=== PATIENT | female | born 1945 | race Caucasian/White ===

== ENCOUNTER 2022-02-19 16:44 | Emergency (ER) | payer MEDICARE, BC, SELFPAY ==
[2022-02-19 17:15] VITALS: BP 162/78; PULSE 72; RESP 18; TEMP 36.7; O2SAT 97; BMI 22.6
--- NOTE | 2022-02-19 17:41 | CRLHL7_ITS ---
For Patients: As a result of the Century Cures Act, medical imaging exams and procedure reports are released immediately into your electronic medical record. You may view this report before your referring provider. If you have questions, please contact your health care provider. INDICATION: Right flank pain COMPARISON: CT abdomen and pelvis without intravenous contrast July 09, 2017. TECHNIQUE: CT abdomen and pelvis without intravenous or oral contrast; coronal and sagittal reformats. FINDINGS: An 8 mm obstructing calculus right distal ureter below the sacroiliac articulation causing moderate to marked right-sided hydronephrosis and hydroureter. Nonobstructing renal calculi lower pole calices right kidney. Extensive perinephric stranding on the right side. Nonobstructing renal calculi lower pole calices left kidney. No obstructive uropathy or perinephric pathology on the left side. Copious amounts of retained stool identified in the rectosigmoid colon. No abnormal intra pulmonary nodular densities through the lung bases. No evidence of pleural effusion. Chronic elevation left hemidiaphragm. No focal hepatic or splenic pathology. No pancreatic pathology. Gallbladder is unremarkable. No adrenal pathology. No retroperitoneal lymphadenopathy. Resection sigmoid colon with end-to-end anastomosis. IMPRESSION: 1. 8 mm obstructing calculus right distal ureter causing moderate to marked right-sided hydronephrosis and hydroureter. 2. Nonobstructing renal calculi lower pole calices both kidneys more on the right. 3. Extensive perinephric stranding on the right. 4. Copious amounts of retained stool identified in the rectosigmoid colon. Please note that all CT scans at this facility use dose modulation, iterative reconstruction, and/or weight-based dosing when appropriate to reduce radiation dose to as low as reasonably achievable. Dictated by Caprice Cardona MD @ 02/19/2022 6:15:12 PM (Electronically Signed)
--- NOTE | 2022-02-19 17:46 | ED_ITS ---
HPI - General Adult General Time Seen by Provider: 17:47 Date Seen: 02/19/22 Chief complaint: Flank Pain Stated complaint: Possible Kidney Stone Time Seen by Provider: 02/19/22 17:27 Source: patient Mode of arrival: ambulatory Limitations: no limitations History of Present Illness HPI narrative: 77-year-old female who comes in today with right flank and right-sided abdominal pain. This started yesterday. She has nausea but no vomiting. Pain is constant, no relieving or exacerbating factors. She tried [place] without relief. She has a history of kidney stones and says this feels similar. No diarrhea, denies hematuria and dysuria. No fevers. No cough or chest pain. Related Data Previous Rx's Medication Instructions Recorded cefdinir 300 mg capsule 300 mg PO BID 10 days #20 caps 02/19/22 polyethylene glycol 3350 17 17 g PO DAILY #238 grams 02/19/22 gram/dose oral powder (Miralax) Allergies Allergy/AdvReac Type Severity Reaction Status Date / Time No Known Drug Allergies Allergy Verified 02/19/22 17:18 Review of Systems Status of ROS: Reports: 10 or more systems reviewed and unremarkable except as noted in History and below PFSH PFSH Social History Smoking Status: Former smoker Do you use any of these nicotine containing products: None Second hand tobacco smoke exposure: No How often do you have a drink containing alcohol: monthly or less How many standard drinks containing alcohol do you have on a typical day: 1 or 2 How often do you have six or more drinks on one occasion: Never AUDIT-C Alcohol total score: 1 Non-prescribed substance use: denies use Exam Narrative: Exam Narrative: General: Well-developed and well-nourished, no acute distress Head: Atraumatic and normocephalic Eyes: Pupils are equal reactive, extraocular motions intact, conjunctiva clear ENT: External nose and ears are normal, posterior pharynx without erythema or exudate Neck: No midline cervical tenderness, full spontaneous range of motion the neck, trachea midline, no adenopathy Heart: Regular rate and rhythm no murmurs or thrills Lungs: Clear to auscultation bilaterally without wheezes or crackles Abdomen: Soft, nontender, nondistended with active bowel sounds Musculoskeletal: No tenderness, deformity, or edema Neurologic: Awake, alert, and oriented x3, no gross focal neurologic deficits, cranial nerves intact as tested Psych: Mood and affect are appropriate Skin: No rashes Const: Vital Signs, click to edit/add: Vital Signs - 24 hr 02/19/22 17:15 Temperature 98.0 F Pulse Rate [Right Pulse Oximeter] 72 Respiratory Rate 18 Blood Pressure [Ri ght Upper Arm] 162/78 H Pulse Oximetry 97 Oxygen Delivery Me thod Room Air Course Course Hospital Course: Patient seen and examined, prior records are reviewed. Patient with right-sided abdominal pain history of kidney stones and says this feels similar. No CVA tenderness on exam, no right-sided abdominal tenderness. No right upper quadrant tenderness, acute cholecystitis unlikely. No right lower quadrant tenderness and patient has a prior appendectomy. Given his symptoms in history of kidney stones, Toradol and Zofran ordered along with labs and CT scan. Reevaluation(s) Reevaluation #1: Discussed CT findings with patient. She has leukocytosis as well as urinalysis with positive nitrites but no white cells, moderate bacteria. Will discuss with Urology, prior procedure at [facility] with Dr. Sanderson with [facility]. Time: 19:38 Reevaluation #2: Care discussed with Dr. Betancourt, [facility]. Feels that if patient looks well clinically, she can be discharged with instructions for return if fever, or other symptoms. Patient is agreeable this Time: 19:53 Vital Signs Vital signs: Initial Vital Signs Temperature 98.0 F 02/19/22 17:15 Temperature Source Temporal Artery Scan 02/19/22 17:15 Pulse Rate 72 02/19/22 17:15 Respiratory Rate 18 02/19/22 17:15 Blood Pressure 162/78 H 02/19/22 17:15 Blood Pressure Mean 106 02/19/22 17:15 Blood Pressure Position Sitting 02/19/22 17:15 Pulse Oximetry 97 02/19/22 17:15 Oxygen Delivery Method 02/19/22 17:15 Vital Signs Temperature 98.0 F 02/19/22 17:15 Pulse Rate 72 02/19/22 17:15 Respiratory Rate 18 02/19/22 17:15 Blood Pressure 162/78 H 02/19/22 17:15 Pulse Oximetry 97 02/19/22 17:15 Oxygen Delivery Method 02/19/22 17:15 Temperature 98.0 F 02/19/22 17:15 Pulse Rate 72 02/19/22 17:15 Respiratory Rate 18 02/19/22 17:15 Blood Pressure 162/78 H 02/19/22 17:15 Pulse Oximetry 97 02/19/22 17:15 Oxygen Delivery Method 02/19/22 17:15 Medical Decision Making Medical Records Medical records reviewed: Yes I reviewed the patient's medical records Lab Data Lab results reviewed: Yes I reviewed the patient's lab results Labs: Lab Results 02/19/22 02/19/22 02/19/22 Range/Units 18:05 18:05 19:15 WBC 15.47 H (4.50-11.00) K/uL RBC 4.48 (4.00-5.20) m/uL Hgb 14.1 (12.0-16.0) gm/dL Hct 42.5 (33.0-51.0) % MCV 95 (80-100) fL MCH 32 (26-34) pg MCHC 33 (32-36) gm/dL Plt Count 241 (140-440) K/uL Neut % (Auto) 91.8 H (42.0-72.0) % Lymph % (Auto) 2.2 L (20-44) % [place] % (Auto) 5.7 (0.0-11.0) % Eos % (Auto) 0.0 (0.0-7.0) % Baso % (Auto) 0.2 (0.0-3.0) % Neut # (Auto) 14.20 H (1.7-7.0) K/uL Lymph # (Auto) 0.30 L (0.90-2.90) K/uL [place] # (Auto) 0.90 (0.00-0.90) K/UL Eos # (Auto) 0.00 (0.00-0.50) K/uL Baso # (Auto) 0.00 (0.00-0.30) K/uL Abs Immat Gran (auto) 0.00 (0.00-0.30) K/uL Imm/Tot Granulo (auto) 0.1 % Sodium 133 L (135-149) mmol/L Potassium 3.9 (3.6-5.1) mmol/L Chloride 95 L (96-114) mmol/L Carbon Dioxide 27 (20-32) mmol/L BUN 17 (7-30) mg/dL Creatinine 0.8 (0.5-1.5) mg/dL Estimated Creat Clear 45.50 Estimated GFR 77 ml/min Glucose 148 H (60-115) mg/dL Calcium 9.3 (8.4-10.6) mg/dL Urine Color Yellow (Yellow) Urine Appearance Cloudy A (Clear) Urine pH 7.5 (5.0-8.5) Ur Specific [place] 1.020 (1.000-1.030) Urine Protein Negative (Negative) Urine Glucose (UA) Negative (Negative) Urine Ketones 3+ A (Negative) Urine Blood Trace-intact A (Negative) Urine Nitrite Positive A (Negative) Urine Bilirubin Negative (Negative) Urine Urobilinogen 1.0 (0.2-1.0) Ur Leukocyte Esterase Negative (Negative) Urine RBC 0-2 (0-2) Urine WBC 2-5 (0-5) Ur Squamous Epith Cells None (None-Few) Urine Bacteria Moderate A (None) Imaging Data CT scan - abdomen: Attestation: I have reviewed the pertinent imaging results. My impression: Right perinephric stranding and hydronephrosis with a distal right ureteral stone, large volume of stool in the rectum. Radiologist's impression: 1. 8 mm obstructing calculus right distal ureter causing moderate to marked right-sided hydronephrosis and hydroureter. 2. Nonobstructing renal calculi lower pole calices both kidneys more on the right. 3. Extensive perinephric stranding on the right. 4. Copious amounts of retained stool identified in the rectosigmoid colon. Discharge Plan Discharge Clinical Impression: Hydronephrosis with urinary obstruction due to ureteral calculus, Fecal impaction in rectum Patient Disposition: Home, Self-Care Condition: Stable Instructions: Fecal Impaction (ED), Ureteral Stones (ED) Additional Instructions: Drink fluids to thirst. Take MiraLax as prescribed. Take Tylenol 650mg or 1000mg every 6 hours alternating with ibuprofen 400mg every 6 hours. Take oxycodone for more severe pain. Call urology for follow-up. [facility] Locations: [facility] Call: [phone] [facility] To contact the [facility], call? tel:[phone] ?or? tel: . A doctor's referral is not required to make an appointment. Activity Level: No Restrictions Discharge Diet: Regular Prescriptions: New polyethylene glycol 3350 [Miralax] 17 gram/dose powder 17 g PO DAILY Qty: 238 0RF cefdinir 300 mg capsule 300 mg PO BID 10 Days Qty: 20 0RF Follow Up/Referrals: Tyrone Gleason MD [Primary Care Provider] - Stand Alone Forms: [facility] Info Instructions
[2022-02-19] MEDS: ONDANSETRON 2 MG/ML inj 4 MG IVP (18:12)
[2022-02-19] MEDS: KETOROLAC 15 MG/ML inj IVP (18:13)
[2022-02-19 18:23] LABS: Chloride* 95 mmol/L (96-114); Potassium* 3.9 mmol/L (3.6-5.1); Sodium* 133 mmol/L (135-149)
[2022-02-19 18:26] LABS: Blood Urea Nitrogen* 17 mg/dL (7-30); Calcium* 9.3 mg/dL (8.4-10.6); Carbon Dioxide* 27 mmol/L (20-32); Creatinine* 0.8 mg/dL (0.5-1.5); Estimated Glomerular Filt Rate 77 ml/min; Glucose* 148 mg/dL (60-115)
[2022-02-19 18:54] LABS: Hematocrit 42.5 % (33.0-51.0); Hemoglobin* 14.1 gm/dL (12.0-16.0); Mean Corpuscular Volume 95 fL (80-100); Red Blood Count 4.48 m/uL (4.00-5.20); White Blood Count* 15.47 K/uL (4.50-11.00)
[2022-02-19 18:55] LABS: Basophils Percent Auto 0.2 % (0.0-3.0); Immature Granulocytes Pct Auto 0.1 %; Lymphocytes Percent Auto 2.2 % (20-44); Mean Corpuscular HGB Conc 33 gm/dL (32-36); Mean Corpuscular Hemoglobin 32 pg (26-34); Monocytes Percent Auto 5.7 % (0.0-11.0); Neutrophils Percent Auto 91.8 % (42.0-72.0); Platelet Count* 241 K/uL (140-440); Slide Review Reflex No
[2022-02-19 19:26] LABS: Appearance Urine Cloudy (Clear); Bilirubin Urine Negative (Negative); Blood Urine Trace-intact (Negative); Color Urine Yellow (Yellow); Glucose Urine Negative (Negative); Ketones Urine 3+ (Negative); Leukocyte Esterase Urine Negative (Negative); Nitrite Urine Positive (Negative); Protein Urine Negative (Negative); pH Urine 7.5 (5.0-8.5)
[2022-02-19 19:35] LABS: RBC Urine 0-2 (0-2)
[2022-02-19 19:36] LABS: Bacteria Urine Moderate
[2022-02-19] MEDS: cefTRIAXone 1 GM in 0.9 % SODIUM CHLORIDE Mini-bag 100 ML IVPB (20:08)
[2022-02-19 20:11] VITALS: BP 159/88; PULSE 92; RESP 18; TEMP 37.4; O2SAT 95
== END 2022-02-19 20:50 | disposition home or self-care (01) ==
PROVIDERS: Emergency Provider Family Medicine; PCP Family Medicine
DX: N13.2 Hydronephrosis with renal and ureteral calculous obstruction (principal)
CPT/HCPCS: 36415; 74176; 80048; 81001; 85025; 87086; 87186; 96365; 96375; 99284; J0696; J1885; J2405